=== PATIENT | female | born 1995 | race Two or more races ===

== ENCOUNTER 2024-09-04 06:00 | Outpatient (CLI) | payer OTHER ==
[2024-09-04 10:53] LABS: HEMATOCRIT 39.8 % (36.0-45.00); HEMOGLOBIN 13.6 g/dL (12.0-15.00); MEAN CELL VOLUME 91.8 fL (80.00-100.00); MEAN CORPUSCULAR HEMOGLOBIN 31.3 pg (27.00-32.0); MEAN CORPUSCULAR HGB CONC 34.1 g/dl (32.0-36.0); PLATELET COUNT 263 K/uL (150-450); RED BLOOD COUNT 4.33 M/uL (4.00-6.00); RED CELL DISTRIBUTION WIDTH 12.4 % (11.5-14.5)
[2024-09-04 10:57] LABS: URINE APPEARANCE Clear; URINE BILIRRUBIN Negative (NEGATIVE); URINE BLOOD Negative; URINE COLOR Yellow; URINE GLUCOSE Negative (NEGATIVE); URINE KETONE Negative (NEGATIVE); URINE LEUKOCYTE Negative; URINE NITRATE Negative; URINE PROTEIN Negative (NEGATIVE)
[2024-09-04 10:58] LABS: URINE BACTERIA 308.4 uL (0.0-1933); URINE EPITHELIAL CELLS 17.3 uL (0.0-38.8); URINE RBC 3.3 uL (0.0-20.8); URINE WBC 4.4 uL (0.0-23.2)
[2024-09-04 11:08] LABS: URINE CAST 0.44 uL (0.0-1.40)
[2024-09-04 11:20] LABS: INR 0.99; PARTIAL THROMBOPLASTIN TIME 29.9 SECONDS (22.0-34.0); PROTHROMBIN TIME 10.8 SECONDS (9.0-11.5)
[2024-09-04 11:25] LABS: ALBUMIN 3.6 gm/dL (3.4-5.0); BILIRUBIN TOTAL 0.56 mg/dL (0.3-1.2); CREATININE SERUM 0.63 mg/dL (0.55-1.02); GFR 113.35; GLOBULINA 4.2 G/DL (2.4-3.5); POTASSIUM 4.35 mEq/L (3.5-5.1); TOTAL PROTEIN 7.8 gm/dL (6.4-8.2)
== END 2024-09-04 06:01 | disposition home or self-care (01) ==
LOC: LAB 06:00 → ADM 09:00 → CIR.AMB 09-12 07:50 → EDSTATUS 09-12 09:00 → CIR.AMB 09-12 09:00
PROVIDERS: ATTEND General Practice
DX: Z90.722 Acquired absence of ovaries, bilateral (principal)